=== PATIENT | male | born 1955 | race Caucasian/White ===

== ENCOUNTER → 2023-09-09 15:49 | Outpatient (REF) | payer MEDICARE, OTHER, SELFPAY | LOC: DHCBS HW 15:49 | PROVIDERS: ATTENDING PHYSICIAN Internal Medicine Cardiovascular Disease; FAMILY PHYSICIAN Student in an Organized Health Care Education/Training Program | DX: I48.91 Unspecified atrial fibrillation (principal) | CPT/HCPCS: 93306 ==

== ENCOUNTER → 2025-04-17 12:44 | Outpatient (REF) | payer MEDICARE, OTHER, SELFPAY ==
[2025-04-17 16:03] LABS: Hematocrit 39.2 % (39.0-52.0); Hemoglobin 13.0 g/dL (13.0-18.0); Mean Corp Hgb Conc. 33.2 g/dL (33.0-37.0); Mean Corpuscular Volume 90.1 fL (80.0-94.0); Platelet Count 215 10^3/uL (130-400); Red Cell Dist. Width 12.8 % (11.5-14.5)
[2025-04-17 16:09] LABS: ALT (SGPT) 14 U/L (0-50); AST (SGOT) 22 U/L (17-59); Albumin 4.3 g/dl (3.5-5.0); Alkaline Phosphatase 50 U/L (38-126); Blood Urea Nitrogen 14 mg/dl (9-20); Calcium 9.7 mg/dl (8.4-10.2); Carbon Dioxide 30 mmol/L (22-30); Chloride 104 mmol/L (98-107); Glucose 93 mg/dl (70-99); HDL Cholesterol 63 mg/dl; LDL Cholesterol, Calculated 108 mg/dl; Potassium 4.5 mmol/L (3.5-5.1); Sodium 139 mmol/L (135-145); Total Protein 7.6 g/dl (6.3-8.2); Very Low Density Lipoprotein 13 mg/dl (0-30); eGFR > 60.00
[2025-04-17 16:40] LABS: PSA, Total - Screen 2.68 ng/ml (0.0-4.0)
== END ==
LOC: HWRAD 12:44
PROVIDERS: ATTENDING PHYSICIAN Nurse Practitioner Family
DX: Z12.5 Encounter for screening for malignant neoplasm of prostate (principal); Z13.29 Encounter for screening for other suspected endocrine disorder; Z13.21 Encounter for screening for nutritional disorder; Z13.1 Encounter for screening for diabetes mellitus; E78.00 Pure hypercholesterolemia, unspecified; R07.89 Other chest pain
CPT/HCPCS: 36415; 71046; 71120; 80053; 80061; 84443; 85027; G0103